=== PATIENT | female | born 1960 | race Caucasian/White ===

== ENCOUNTER 2021-06-22 10:24 | Emergency (ER) | payer OTHER, SELFPAY ==
[2021-06-22 10:25] VITALS: BP 140/78; PULSE 98; RESP 18; TEMP 36.6; O2SAT 98; BMI 24.3
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
== END 2021-06-22 11:35 | disposition home or self-care (01) ==
LOC: ED 11:34
PROVIDERS: Emergency Provider Emergency Medicine; PCP Family Medicine
DX: S63.502A Unspecified sprain of left wrist, initial encounter (principal); F17.210 Nicotine dependence, cigarettes, uncomplicated; V59.40XA Driver of pick-up truck or van injured in collision with unspecified motor vehicles in traffic accident, initial encounter
CPT/HCPCS: 73110; 99283